=== PATIENT | female | born 1945 | race Two or more races ===

== ENCOUNTER → 2020-01-01 | Day surgery (SDC) | payer MEDICAID ==
[~2020-01-01] VITALS: Ht 144.8 cm; Wt 60.3 kg
[~2020-01-01] MED LIST: BUPIVACAINE W/ EPINEPH 0.25% INJ 50ML MDV ONE; DOCU-94 PO; ETOMIDATE (2MG/ML) 20ML VIAL IV ONE; GLYCOPYRROLATE 0.2 MG/ML 1ML VIAL ONE; HYDR-4833 GT; LIDOCAINE 2% (LOCAL ANESTH.) PF 5ml SDV ONE; LIDOCAINE W/ EPINEPHRINE 1% 20ML VIAL ONE; METOCLOPRAMIDE HCL 5MG/ml INJ 2ml VIAL ONE; MIDAZOLAM HCL 1MG/1ML-2 ML VIAL ONE; NALOXONE HCL 0.4 MG/ML VIAL IV PRN; NEOSTIGMINE 1 MG/ML INJ (10mg/10ML VIAL) ONE; ONDANSETRON HCL 4 MG/2 ML VIAL IV PRN; PRAV20TA3 PO; ROCURONIUM 10MG/ML 10ML VIAL IV ONE; SUCCINYLCHOLINE CHLORIDE 20 MG/ML 10ML VIAL IV ONE; ceFAZolin 1GM/50ML 100 ML IV ONE; fentaNYL CITRATE 100 MCG/2 ML VL ONE
[2020-01-01] MEDS: HYDROmorphone HCL 2 MG/ML VL IV PRN ×4 (11:05→11:37)
[2020-01-01 11:43] VITALS: BP 140/61
== END | disposition home or self-care (01) ==
LOC: SUR 07:13
PROVIDERS: ATTEND Surgery
DX: K80.10 Calculus of gallbladder with chronic cholecystitis without obstruction (principal); E78.5 Hyperlipidemia, unspecified; I10 Essential (primary) hypertension; Z79.899 Other long term (current) drug therapy; Z90.710 Acquired absence of both cervix and uterus; Z98.890 Other specified postprocedural states
CPT/HCPCS: 47562; 88304; J0330; J0690; J1170; J2001; J2250; J2765; J3010